=== PATIENT | male | born 1990 | race Caucasian/White ===

== ENCOUNTER 2017-08-01 21:10 | Emergency (ER) | payer SELFPAY ==
[~2017-08-01] VITALS: Ht 175.3 cm; Wt 94.8 kg
[2017-08-01 23:47] LABS: UA SPECIFIC GRAVITY 1.025 (1.005-1.035); microscopic required? YES; urine erythrocyte TRACE (NEGATIVE)
[2017-08-01 23:51] LABS: BASOPHIL % 0.2 % (0-2); PLATELET COUNT 252 x10^3mcL (130-400); RED CELL DISTRIBUTION WIDTH 12.8 % (11.5-14.5)
[2017-08-01 23:52] LABS: CALCIUM 8.9 mg/dL (8.5-10.1); CARBON DIOXIDE 24.9 mmol/L (21-32); CHLORIDE SERUM 100 mmol/L (98-107); CREATININE SERUM 0.8 mg/dL (0.7-1.3); GFR1 > 60 mL/min; GLUCOSE SERUM 115 mg/dL (74-106); POTASSIUM SERUM 3.6 mmol/L (3.5-5.1); SODIUM SERUM 138 mmol/L (136-145)
[2017-08-01 23:57] LABS: ALBUMIN 4.2 g/dL (3.4-5.0); ALKALINE PHOSPHATASE 83 U/L (46-116); ALT/SGPT 51 U/L (16-63); AMYLASE 52 U/L (25-115); AST/SGOT 35 U/L (15-37); BILIRUBIN TOTAL 1.59 mg/dL (0.20-1.00); LIPASE 73 IU/L (73-393)
[2017-08-02 00:25] VITALS: BP 136/76
== END 2017-08-02 01:19 | disposition home or self-care (01) ==
LOC: ED 21:10
PROVIDERS: Emergency Medicine
DX: R10.13 Epigastric pain (principal)
CPT/HCPCS: J1170; Q0162